=== PATIENT | female | born 1930 | race Caucasian/White ===

== ENCOUNTER → 2016-12-12 | Outpatient (CLI) | payer OTHER, MEDICARE ==
[2016-12-12 08:49] LABS: CREATININE 1.1 mg/dL (0.6-1.0)
== END ==
LOC: CAT 08:13
PROVIDERS: Family Medicine
DX: K57.90 Diverticulosis of intestine, part unspecified, without perforation or abscess without bleeding (principal); N85.9 Noninflammatory disorder of uterus, unspecified; N28.1 Cyst of kidney, acquired

== ENCOUNTER 2017-02-02 07:06 | Emergency (ER) | payer OTHER, MEDICARE ==
[~2017-02-02] VITALS: Ht 160 cm; Wt 59.0 kg
--- NOTE | ~2017-02-02 | EKG ---
[place] [address] [facility] [place] [address] ELECTROCARDIOGRAM REPORT Name: TAYERICK Room #: [facility]#: [id number] Admission: 02/02/17 Attend Phys: Discharge: 02/02/17 Date of : 30 Report #: [id number] THIS REPORT FOR: //name// [facility] ED Test Date: 2017-02-02 Test Time: 07:18:13 Pat Name: ERICK CROSS Department: Room: Gender: F [employer]: Martha GONZALEZ : 1930 Requested By: Jonathan Hardin Order Number: [id number] MD: Brayan Levy Measurements Intervals [place] Rate: 72 P: 53 MT: 159 QRS: -37 QRSD: 143 T: 47 QT: 429 QTc: 470 Interpretive Statements Sinus rhythm Right bundle branch block Left ventricular hypertrophy Baseline wander in lead(s) V3 Compared to ECG 10/03/2008 10:08:02 No significant change was found Electronically Signed On 02-03-2017 9:08:45 CDT by Brayan Levy [email or web address] <ELECTRONICALLY SIGNED> By: Brayan Levy MD, [facility] 02/03/17 [id number] Brayan Levy MD, [facility] /EPI
[2017-02-02] MEDS ORDERED: LIPITOR 20 MG T20 M1 PO (07:17)
[2017-02-02] MEDS ORDERED: BYSTOLIC 5 MG5 M1 PO (07:17)
[2017-02-02] MEDS ORDERED: TYLENOL325 MG PO (07:18)
[2017-02-02] MEDS ORDERED: CITRACAL + BON1 EACH PO (07:28)
[2017-02-02] MEDS ORDERED: PROBIOTIC1 EAC1 PO (07:29)
[2017-02-02] MEDS ORDERED: ASPIR 8181 MG PO (07:29)
[2017-02-02] MEDS ORDERED: CRANBERRY200 MG PO (07:29)
[2017-02-02] MEDS ORDERED: FISH OIL 1,001000 M2 PO (07:29)
[2017-02-02] MEDS ORDERED: OMEPRAZOLE40 MG PO (07:30)
[2017-02-02] MEDS ORDERED: GAVISCON ES CH1 EAC1 PO (07:30)
[2017-02-02] MEDS ORDERED: MOBIC7.5 MG PO (07:30)
[2017-02-02 07:43] LABS: ABSOLUTE NEUTROPHILS 5.3 thou/uL (1.4-8.2); BASOPHILS 0.3 % (0.0-2.0); EOSINOPHILS 1.1 % (0.0-3.0); HEMATOCRIT 36.9 % (37.0-47.0); HEMOGLOBIN 12.1 gm/dL (12.0-15.0); LYMPHOCYTES 13.4 % (24.0-44.0); MANUAL DIFF NO; MCH 29.8 pg (26.0-34.0); MCHC 32.9 g/dL (28.0-37.0); MCV 90.7 fL (80.0-100.0); MONOCYTES 8.9 % (1.0-8.0); PLATELET COUNT 191 thou/uL (150-400); POLYS 76.3 % (36.0-66.0); RBC 4.07 mil/uL (4.20-5.00); RDW 14.4 % (10.5-14.5); WBC 6.9 thou/uL (4.0-11.0)
[2017-02-02 07:51] LABS: ANION GAP 8 mmol/L (7-16); BUN 20 mg/dL (7-18); CHLORIDE 104 mmol/L (98-107); CO2 26 mmol/L (21-32); GLUCOSE 110 mg/dL (74-106); SODIUM 138 mmol/L (136-145)
[2017-02-02 07:59] LABS: TROPONIN-I < 0.04 ng/mL (<0.04-0.07)
[2017-02-02 09:02] VITALS: BP 169/70
== END 2017-02-02 09:03 | disposition home or self-care (01) ==
LOC: ER 07:06
PROVIDERS: Emergency Medicine
DX: R00.2 Palpitations (principal); I10 Essential (primary) hypertension; K21.9 Gastro-esophageal reflux disease without esophagitis; E89.2 Postprocedural hypoparathyroidism; Z86.718 Personal history of other venous thrombosis and embolism; Z86.79 Personal history of other diseases of the circulatory system; Z85.828 Personal history of other malignant neoplasm of skin; Z88.0 Allergy status to penicillin